=== PATIENT | male | born 1940 | race Caucasian/White ===

== ENCOUNTER 2018-02-11 19:12 | Inpatient (IN) ==
[2018-02-11 19:55] LABS: Basophils % 0.9 % (0.1-2.0); Eosinophils % 0.5 % (0.1-12.0); Hematocrit 45.1 % (42.0-52.0); Hemoglobin 13.2 g/dL (14.1-18.0); Lymphocytes # 1.7 K/mm3 (0.7-4.5); Lymphocytes % 38.8 K/mm3 (10-50); Mean Corpuscular HGB Conc 29.2 g/dL (31.8-35.4); Mean Corpuscular Hemoglobin 24.4 pg (27.0-31.2); Mean Corpuscular Volume 83.6 fl (80-94); Mean Platelet Volume 10.1 fl (7.4-10.4); Monocytes # 0.4 K/mm3 (0.1-1.0); Neutrophils # 2.2 K/mm3 (1.8-7.8); Neutrophils % 51.7 % (37.0-80.0); Platelet Count 168 K/mm3 (142-424); Red Blood Count 5.39 M/mm3 (4.60-6.20); Red Cell Distribution Width 17.3 % (11.5-17.5); White Blood Count 4.3 K/mm3 (4.8-10.8)
[2018-02-11 20:04] LABS: Albumin Level 3.2 gm/dL (3.4-5.0); Albumin/Globulin Ratio 0.9 (1.1-1.8); Anion Gap 17.1 mEq/L (5-15); Bilirubin,Total 0.7 mg/dL (0.2-1.0); Calcium 8.6 mg/dL (8.5-10.1); Globulin 3.7 gm/dl (1.3-3.2); Potassium 4.1 mmoL/L (3.5-5.1); Total Protein,Serum 6.9 gm/dL (6.4-8.2)
--- NOTE | 2018-02-11 20:25 | Emergency Department Note ---
ED Disposition Clinical Impression: Palpitations, NSTEMI (non-ST elevated myocardial infarction), COPD exacerbation LLL pneumonia Qualifiers: Pneumonia type: due to unspecified organism Qualified Code(s): J18.1 - Lobar pneumonia, unspecified organism Disposition: Admitted As Inpatient Condition on Discharge: Serious Time of Disposition: 22:25 - Critical Care Critical Care Time: Yes Attestation: On 02/11/18, the high probability of a clinically significant, sudden or life threatening deterioration of the following system(s) required my full and direct attention, intervention and personal management. The time I documented below is in addition to time spent performing reported procedures but includes the following listed in this critical care notation. Total Critical Care Time: 65 Vital system(s) involved:: Circulatory Failure My critical care processes included: Assessment & monitoring of V/S, Initial and Re-exams, Data Review/Interpretation, Coordinating Care, Medication Orders and management, Documentation Medical Decision Making - Medical Records Medical records reviewed: Yes: I reviewed the patient's medical records. - Andrew Inquiry Pt receiving controlled substance: No Vital Signs: 02/11/18 19:13 02/11/18 21:44 02/11/18 21:45 Temperature 98.7 F Temperature Source Oral Pulse Rate 87 Pulse Rate [Right Radial] 100 H Respiratory Rate 22 Blood Pressure [Right Arm] 148/95 Blood Pressure Mean [Right Arm] 112 02 Sat by Pulse Oximetry 97 97 Oxygen Delivery Method Nasal Cannula Nasal Cannula Oxygen Flow Rate (LPM) 3 2 - Lab Data Lab results reviewed: Yes: I reviewed the patient's lab results. Lab Results 02/11/18 00:00: Lactic Acid Fup @ 4Hr 1.9 02/11/18 19:25: WBC 4.3 L, RBC 5.39, Hgb 13.2 L, Hct 45.1, MCV 83.6, MCH 24.4 L , MCHC 29.2 L, RDW 17.3, Plt Count 168, MPV 10.1, Neut % (Auto) 51.7, Lymph % ( Auto) 38.8, [place] % (Auto) 8.0, Eos % (Auto) 0.5, Baso % (Auto) 0.9, Neut # (Auto ) 2.2, Lymph # (Auto) 1.7, [place] # (Auto) 0.4, Eos # (Auto) 0.0, Baso # (Auto) 0.0 02/11/18 19:25: Total Creatine Kinase 199, CK-MB (CK-2) 7.0 H, CK-MB (CK-2) Rel Index 3.5, Troponin I 1.97 H 02/11/18 19:25: Sodium 143, Potassium 4.1, Chloride 112 H, Carbon Dioxide 18 L, Anion Gap 17.1 H, BUN 31 H, Creatinine 1.50 H, Estimated Creat Clear 43, Estimated GFR 46 L, Est GFR ( Amer) 55 L, Glucose 132 H, Calcium 8.6, Magnesium 2.1, Total Bilirubin 0.7, AST 161 H, ALT 178 H, Alkaline Phosphatase 212 H, Total Protein 6.9, Albumin 3.2 L, Globulin 3.7 H, Albumin/Globulin Ratio 0.9 L 02/11/18 19:25: Lactic Acid 2.6 H Result diagrams: 02/11/18 19:25 02/11/18 19:25 Orders (Tests/Meds): ED MEDICATIONS Generic Name Dose Route Start Last Admin Trade Name Freq PRN Reason Stop Dose Admin Acetaminophen 325 mg 02/11/18 22:39 Acetaminophen 325mg Tab PO 03/13/18 22:38 Q8HP PRN Muscle Pain Albuterol/Ipratropium 3 ml 02/12/18 01:00 02/12/18 03:46 Duoneb 3ml [facility] 03/13/18 20:59 3 ml Q4H GEN Administration Albuterol/Ipratropium ml 02/11/18 22:39 Duoneb 3ml [facility] 03/13/18 22:38 Q6HP PRN Shortness Of Breath Aspirin 325 mg 02/12/18 20:47 Aspirin 325mg Tablet PO 03/14/18 20:46 DAILY [facility] Enoxaparin Sodium 70 mg 02/12/18 09:00 Lovenox 80mg/0.8ml Syringe SQ 03/13/18 20:59 BID GEN Finasteride 5 mg 02/12/18 09:00 Proscar 5mg Tablet PO 03/14/18 08:59 DAILY GEN Gabapentin 400 mg 02/12/18 09:00 Neurontin 400mg Capsule PO 03/14/18 08:59 TID GEN Levofloxacin/Dextrose 250 mg in 50 mls @ 100 mls/hr 02/12/18 21:00 Levaquin 250mg/50ml Premix IV 02/25/18 20:59 Q24H [facility] Protocol Piperacillin Sod/Tazobactam 50 mls @ 100 mls/hr 02/12/18 06:00 Sod 2.25 gm/ Sodium Chloride IV 02/25/18 05:59 Q6H [facility] Protocol Levetiracetam 500 mg 02/12/18 09:00 Keppra 500mg Tablet PO 03/14/18 08:59 DAILY [facility] Morphine Sulfate 2 mg 02/12/18 04:12 Morphine 2mg/2ml Syringe IV 03/14/18 04:11 Q4HP PRN MODERATE TO SEVERE PAIN Nitroglycerin 0.5 gm 02/12/18 05:00 Nitroglycerin 1 Inch Oint Udp TD 03/13/18 20:59 Q8 [facility] Non-Formulary Medication 3 mg 02/12/18 09:00 Melatonin PO 03/14/18 08:59 DAILY [facility] Non-Formulary Medication 2 tab 02/11/18 22:39 Senna Laxative Tablet PO BIDP PRN Constipation Non-Formulary Medication 1 applic 02/12/18 09:00 Hydrocortisone [Proctozone-Hc] MISCELLANE 03/14/18 08:59 BID [facility] Pantoprazole Sodium 40 mg 02/12/18 09:00 Protonix 40mg Tablet PO 03/14/18 08:59 DAILY [facility] Polyethylene Glycol 17 gm 02/12/18 09:00 Miralax 17gm Packet PO 03/14/18 08:59 DAILY [facility] Sodium Chloride 10 ml 02/11/18 22:39 Saline Flush 10ml Syringe IV 03/13/18 22:38 NEEDED PRN Maintain IV Site Tamsulosin HCl 0.4 mg 02/12/18 09:00 Flomax 0.4mg Capsule PO 03/14/18 08:59 DAILY [facility] Ticagrelor 90 mg 02/12/18 09:00 Brilinta 90mg Tablet PO 03/14/18 08:59 BID [facility] Discontinued Medications Generic Name Dose Route Start Last Admin Trade Name Freq PRN Reason Stop Dose Admin Albuterol/Ipratropium 3 ml 02/11/18 21:00 02/11/18 21:43 Duoneb 3ml Neb IH 03/13/18 20:59 3 ml Q4H GEN Administration Albuterol/Ipratropium 3 ml 02/11/18 21:40 02/12/18 00:37 Duoneb 3ml Neb IH 02/11/18 21:41 Not Given ONCE ONE Aspirin 325 mg 02/12/18 20:47 Aspirin 325mg Tablet PO 03/14/18 20:46 DAILY GEN Enoxaparin Sodium 70 mg 02/11/18 21:00 02/11/18 22:10 Lovenox 80mg/0.8ml Syringe SQ 03/13/18 20:59 70 mg BID GEN Administration Levofloxacin/Dextrose 250 mg in 50 mls @ 100 mls/hr 02/11/18 21:00 02/11/18 23:21 Levaquin 250mg/50ml Premix IV 02/25/18 20:59 100 mls/hr Q24H GEN Administration Protocol Piperacillin Sod/Tazobactam 50 mls @ 100 mls/hr 02/11/18 21:00 02/12/18 00:34 Sod 2.25 gm/ Sodium Chloride IV 02/25/18 20:59 100 mls/hr Q6H GEN Administration Protocol Sodium Chloride 1,000 mls @ 75 mls/hr 02/11/18 22:39 02/11/18 23:21 Sod Chlor 0.9% 1000ml Bag IV 03/13/18 22:38 75 mls/hr .[id number] GEN Administration Nitroglycerin 0.5 gm 02/11/18 21:00 02/11/18 22:15 Nitroglycerin 1 Inch Oint Udp TD 03/13/18 20:59 0.5 gm Q8 GEN Administration Ticagrelor 180 mg 02/11/18 20:56 02/12/18 00:34 Brilinta 90mg Tablet PO 02/11/18 20:57 180 mg ONCE ONE Administration ORDERS Category Date Time Status Blood Culture Stat Micro 02/11/18 19:25 Received - Radiology Data #1 Image(s): Chest Image Reviewed: Yes I reviewed the patient's radiology results, Yes I reviewed the patient's radiology image, Yes I have reviewed radiologist's interpretation LLL pneumonai - ECG Data Tracing #1 I reviewed this ECG and interpreted as documented below: paced rhythm with multiple PVCs, HR 88 ECG normal with no acute: arrhythmias, ischemia, conduction abnormalities, chamber hypertrophy Normal Sinus Rhythm: No - Physician Consults Physician Consulted: Dr Palomino Time: 20:53 Reason -: Admission, Pt condition, Cardiology Eval/Care Comment/Response: Agreeable with admission in consultation, recommended aspirin , Brilinta, Lovenox subcu, nitroglycerin, beta-blockers Additional Consult: Dr Ruano covering for Dr Aranda Time: 20:50 Reason -: Admission, Pt condition Comment/Response: agreeable with admission, management, cardiology consult. - Reevaluation(s) Time: 21:00 Reevaluation #1: Patient is denying any chest pain, at this time, states he is still short of breath. Arrhythmia/Palpitations HPI - General Chief Complaint: Arrhythmia/Palpitations Stated Complaint: bradycardia Time Seen by Provider: 02/11/18 20:00 Mode of Arrival: EMS Source of Information: Patient Limitations: Physical Limitations - History of Present Illness HPI narrative: Patient is a 77-year-old care home male patient with history of hydrocephalus sent to the emergency room because of chest pain and shortness of breath, voiced to the nursing staff, with unknown onset. Patient is a very poor historian, and details of his symptoms are very limited. Patient underwent CABG more than 10 years ago, per niece. Family also advised the patient had myocardial infarction in the past and a heart catheterization followed by couple of stents. The care home staff report was much shorter, staff reporting just a heart rate in the 30s, not confirmed upon arrival to the emergency room. MD complaint: palpitations Onset (ago): unknown Duration: intermittent Severity: moderate Context: occurred during rest Associated symptoms: chest pain, shortness of breath - Related Data Home Medications Medication Instructions Recorded Confirmed Acetaminophen [Tylenol] 325 mg PO Q8HP PRN 02/11/18 02/11/18 Amoxicillin/Potassium Clav 1 tab PO BID 02/11/18 02/11/18 [Amox-Clav 875-125 mg Tablet] Aspirin [Aspir 81] 81 mg PO DAILY 02/11/18 02/11/18 Finasteride [Proscar 5mg Tablet] 5 mg PO DAILY 02/11/18 02/11/18 Gabapentin [Gabapentin 400mg Cap] 400 mg PO TID 02/11/18 02/11/18 Hydrocortisone [Proctozone-Hc] 1 applic MISCELLANE BID 02/11/18 02/11/18 Ipratropium/Albuterol Sulfate 1 inh INHALATION Q6HP PRN 02/11/18 02/11/18 [Albut-Ipratropium 2.5mg-0.5mg/3 ml] Melatonin 3 mg PO DAILY 02/11/18 02/11/18 Pantoprazole Sodium [Protonix 40mg 40 mg PO DAILY 02/11/18 02/11/18 tablet] Polyethylene Glycol 3350 [Miralax 17 gm PO DAILY 02/11/18 02/11/18 17gm Packet] Senna Laxative Tablet 2 tab PO BIDP PRN 02/11/18 02/11/18 Tamsulosin HCl [Flomax 0.4mg 0.4 mg PO DAILY 02/11/18 02/11/18 capsule] levETIRAcetam [Keppra 500mg tablet] 500 mg PO DAILY 02/11/18 02/11/18 Allergies Allergy/AdvReac Type Severity Reaction Status Date / Time No Known Allergies Allergy Verified 02/12/18 01:49 [facility] History I have reviewed the patient's past medical history: Yes Medical History: Denies:: Cancer, Diabetes Mellitus Type 1, Diabetes Mellitus Type 2 - Social History Smoking Status: Never smoker Alcohol Intake: never - Psychiatric History Expresses thoughts of harming self/others: None Suicide Plan Description: No Plan ROS Obtained: Yes All systems reviewed & no additional complaints, Yes Systems reviewed as appropriate & no additional complaints - Cardiovascular Cardiovascular: Reports system reviewed and no additional complaints, except as docu, Reports as per HPI, Reports chest pain - Respiratory Respiratory: Yes system reviewed and no additional complaints, except as docu, Yes as per HPI, Yes dyspnea Physical Exam - General General appearance: alert, in distress (mild) - Head Head exam: atraumatic, normocephalic, normal inspection - Eye Eye exam: Present: normal appearance, PERRL, EOMI, other (cataracts) - Neck Neck exam: Present: normal inspection, full ROM, trachea midline. Absent: meningismus, lymphadenopathy - Chest Chest inspection: Present: normal inspection, symmetric chest wall rise. Absent : tenderness - Respiratory Respiratory exam: Present: respiratory distress, wheezes - Cardiovascular Cardiovascular exam: Present: regular rate, normal rhythm. Absent: JVD - Abdominal Exam Abdominal exam: Present: soft, normal bowel sounds. Absent: distention, tenderness, guarding - Extremities Exam Extremities exam: Present: normal inspection, full ROM, normal capillary refill. Absent: calf tenderness - Back Exam Back exam: Present: normal inspection. Absent: tenderness - Neurological Exam Neurological exam: Present: alert, CN II-XII intact, motor sensory deficit, other (very hard of hearing, lethargic) - Psychiatric Psychiatric exam: Present: depressed, flat affect - Skin Skin exam: Present: warm, dry, intact, normal color - Lymphatic Lymphatic Findings: no adenopathy
[2018-02-12 07:19] LABS: Chol/HDL Ratio 4.3 (1-3.5)
--- NOTE | 2018-02-12 07:46 | Pharmacy Consult Notes ---
[facility] Pharmacy VTE Monitoring - Patient Demographics Admission date: 02/11/18 Report Date: 02/12/18 Time: 07:46 Allergies/Adverse Reactions: Patient Allergies No Known Allergies Allergy (Verified 02/12/18 01:49) Height: 1.75 m Weight: 85.899 kg Patient Problems: Current Active Problems Palpitations (Acute) NSTEMI (non-ST elevated myocardial infarction) (Acute) LLL pneumonia (Acute) COPD exacerbation (Acute) - VTE Risk Labs: VTE Related Lab Results Hgb 13.2 g/dL (14.1-18.0) L 02/11/18 19:25 Hct 45.1 % (42.0-52.0) 02/11/18 19:25 Plt Count 168 K/mm3 (142-424) 02/11/18 19:25 BUN 31 mg/dL (7-18) H 02/11/18 19:25 Creatinine 1.50 mg/dL (0.70-1.30) H 02/11/18 19:25 Estimated Creat Clear 43 mL/min (0-300) 02/11/18 19:25 Was VTE Risk Assessment Performed: Yes VTE Score: 5 VTE Risk Level: Low Risk Clinical Trial Participant: No - Prophylaxis VTE Prophylaxis Ordered?: Yes Types of VTE Prophylaxis: TEDS Knee High, Pharmacological Pharmacologic Type: Enoxaparin
--- NOTE | 2018-02-12 08:09 | Consult Report ---
History of Present Illness Consult date: 02/12/18 Requesting physician: Samuel Aranda Chief complaint: Bradycardia Additional Medical History:: 1. Coronary artery disease A. History of three-vessel coronary bypass grafting, BRISCOE to LAD, SVG to first diagonal and SVG to PDA in 1993. B. Ischemic CM with EF in the 25-40% range over several years by various imaging modalities 2. History of sick sinus syndrome with pacemaker placement in 1996 A. [employer] pacemaker placement 2002 B. Upgrade to [employer] AICD in 2004 due to ischemic cardiomyopathy with battery replacement last in 10/31/2014 3. History of right upper extremity trauma at -[facility]. A. History of tendon release in the 1949s. 4. Hypertension 5. Hyperlipidemia History of present illness: 77-year-old white male with known coronary artery disease and ischemic cardiomyopathy with AICD in situ was sent from long-term due to reported bradycardia. Workup in the ER revealed elevated troponins and patient was admitted for non-STEMI. He was started on antiplatelet therapy last evening with plans for cardiac catheterization today. Due to report of bradycardia AICD will be interrogated today. Patient denies any chest pain at this time but does get anxious quickly. His niece is present and answers most of the history questions. EKG shows intermittent pacing with PVCs in a bigeminal pattern. Inter-Ventricular conduction delay noted. Pt is easily excited and becomes SOA with audible wheezing but settles down quickly and breathing returns to normal. [facility] History Medical History: Reports:: Coronary Artery Disease, Hyperlipidemia, Hypertension , Internal Pacemaker, Myocardial Infarction Denies:: Cancer, Diabetes Mellitus Type 1, Diabetes Mellitus Type 2, MRSA Other Medical History: Reports: Arthritis, Thyroid Disease Other Surgeries: Yes: CABG, Cardiac Surgery, Pacemaker Amputation: No Fractures: Yes (shoulder) - *Social History Smoking Status: Never smoker Alcohol Intake: never Occupational Status: retired Housing: long-term Household Members: none - Psychiatric History Expresses thoughts of harming self/others: None Suicide Plan Description: No Plan Meds Home Medications Medication Instructions Recorded Confirmed Type Acetaminophen [Tylenol] 325 mg PO Q8HP PRN 02/11/18 02/11/18 History Aspirin [Aspir 81] 81 mg PO DAILY 02/11/18 02/11/18 History Finasteride [Proscar 5mg Tablet] 5 mg PO DAILY 02/11/18 02/11/18 History Gabapentin [Gabapentin 400mg Cap] 400 mg PO TID 02/11/18 02/11/18 History Hydrocortisone [Proctozone-Hc] 1 applic MISCELLANE BID 02/11/18 02/11/18 History Ipratropium/Albuterol Sulfate 1 inh INHALATION Q6HP PRN 02/11/18 02/11/18 History [Albut-Ipratropium 2.5mg-0.5mg/3 ml] Melatonin 3 mg PO DAILY 02/11/18 02/11/18 History Pantoprazole Sodium [Protonix 40mg 40 mg PO DAILY 02/11/18 02/11/18 History tablet] Polyethylene Glycol 3350 [Miralax 17 gm PO DAILY 02/11/18 02/11/18 History 17gm Packet] Senna Laxative Tablet 2 tab PO BIDP PRN 02/11/18 02/11/18 History Tamsulosin HCl [Flomax 0.4mg 0.4 mg PO DAILY 02/11/18 02/11/18 History capsule] levETIRAcetam [Keppra 500mg tablet] 500 mg PO DAILY 02/11/18 02/11/18 History Allergies Allergy/AdvReac Type Severity Reaction Status Date / Time No Known Allergies Allergy Verified 02/12/18 01:49 Review of Systems - *Cardiovascular Reports chest pain - *Respiratory Reports shortness of breath with activity - *Gastrointestinal Denies abdominal pain Exam Vital signs and Labs for Last 24 Hours: Temp Pulse Resp BP Pulse Ox 98.0 F 101 H 24 145/109 95 02/12/18 07:44 02/12/18 07:44 02/12/18 07:44 02/12/18 07:44 02/12/18 07:44 Laboratory Results - last 24 hr 02/11/18 22:55: Troponin I 2.13 H 02/12/18 06:09: Triglycerides 67, Cholesterol 134 L, LDL Cholesterol 90, VLDL Cholesterol 13, HDL Cholesterol 31, Cholesterol/HDL Ratio 4.3 H I & O for Last 24 hours: Intake & Output 02/09/18 02/10/18 02/11/18 02/12/18 11:59 11:59 11:59 11:59 Weight 189 lb 6 oz - *Routine Neck Exam Absent: JVD, carotid bruit - *Routine Respiratory Exam Present: wheezes - *Routine Cardiovascular Exam Present: irregular rhythm - *Routine Extremities Exam Absent: edema - *Routine Neurological Exam Present: alert Assessment and Plan (1) COPD exacerbation Current visit: Yes Status: Acute Category: Medical Code(s): J44.1 - Chronic obstructive pulmonary disease with (acute) exacerbation (2) NSTEMI (non-ST elevated myocardial infarction) Current visit: Yes Status: Acute Category: Medical Code(s): I21.4 - Non- ST elevation (NSTEMI) myocardial infarction (3) Palpitations Current visit: Yes Status: Acute Category: Medical Code(s): R00.2 - Palpitations (4) Bradycardia Current visit: Yes Status: Acute Category: Medical Code(s): R00.1 - Bradycardia, unspecified (5) AICD (automatic cardioverter/defibrillator) present Current visit: Yes Status: Acute Category: Surgical Code(s): Z95.810 - Presence of automatic (implantable) cardiac defibrillator - Assessment and plan all Dx Assessment and Plan for all problems:: 1. With known CAD/CABG and elevated troponins, will plan to proceed with C with grafts today. 2. Due to reported bradycardia, will interrogate AICD. 3. Check echo if needed to re-assess LVEF but will await results of cardiac cath before ordering. 4. Further recommendations to follow
--- NOTE | 2018-02-12 08:38 | History & Physical Report ---
*Admission Date: 02/11/18 *Chief complaint: Chest pain *History of present illness: 77-year-old white male, long-term resident of local alf who is afflicted with baseline cognitive impairment and has had seizure disorder in the past who over the past couple of days has complained of some coughing, has had some increased falls and yesterday began complaining of chest pain. Brought to the emergency department he was found to have elevated troponins, and slightly dehydrated. Admitted to [facility] for further evaluation, rule out [place] and cardiology consultation. [facility] History I have reviewed the patient's past medical history: Yes Medical History: Reports:: Coronary Artery Disease, Hyperlipidemia, Hypertension , Internal Pacemaker, Myocardial Infarction Denies:: Cancer, Diabetes Mellitus Type 1, Diabetes Mellitus Type 2, MRSA Other Medical History: Reports: Arthritis, Thyroid Disease, Other (Congenital cognitive impairment hydrocephalus -history of seizure disorder) Comment: Patient has deferred replacement years ago, questionable performance Other Surgeries: Yes: CABG, Cardiac Surgery, Pacemaker Amputation: No Fractures: Yes (shoulder) - *Social History Smoking Status: Never smoker Alcohol Intake: never Occupational Status: retired Housing: alf Household Members: none - Psychiatric History Expresses thoughts of harming self/others: None Suicide Plan Description: No Plan Review of Systems - Review of Systems Review of systems:: unable to obtain, other, pertinent systems reviewed and negative unless documented below - *Cardiovascular Reports chest pain, Reports chest pain at rest, Reports shortness of breath, Denies excessive sweating, Denies irregular heart rhythm - *Respiratory Reports change in phlegm color, Reports chest congestion, Reports cough - *Gastrointestinal Denies abdominal pain Meds Home Medications Medication Instructions Recorded Confirmed Type Acetaminophen [Tylenol] 325 mg PO Q8HP PRN 02/11/18 02/11/18 History Amoxicillin/Potassium Clav 1 tab PO BID 02/11/18 02/11/18 History [Amox-Clav 875-125 mg Tablet] Aspirin [Aspir 81] 81 mg PO DAILY 02/11/18 02/11/18 History Finasteride [Proscar 5mg Tablet] 5 mg PO DAILY 02/11/18 02/11/18 History Gabapentin [Gabapentin 400mg Cap] 400 mg PO TID 02/11/18 02/11/18 History Hydrocortisone [Proctozone-Hc] 1 applic MISCELLANE BID 02/11/18 02/11/18 History Ipratropium/Albuterol Sulfate 1 inh INHALATION Q6HP PRN 02/11/18 02/11/18 History [Albut-Ipratropium 2.5mg-0.5mg/3 ml] Melatonin 3 mg PO DAILY 02/11/18 02/11/18 History Pantoprazole Sodium [Protonix 40mg 40 mg PO DAILY 02/11/18 02/11/18 History tablet] Polyethylene Glycol 3350 [Miralax 17 gm PO DAILY 02/11/18 02/11/18 History 17gm Packet] Senna Laxative Tablet 2 tab PO BIDP PRN 02/11/18 02/11/18 History Tamsulosin HCl [Flomax 0.4mg 0.4 mg PO DAILY 02/11/18 02/11/18 History capsule] levETIRAcetam [Keppra 500mg tablet] 500 mg PO DAILY 02/11/18 02/11/18 History Allergies Allergy/AdvReac Type Severity Reaction Status Date / Time No Known Allergies Allergy Verified 02/12/18 01:49 Exam Vital signs and Labs for Last 24 Hours: Temp Pulse Resp BP Pulse Ox 98.0 F 100 H 24 145/109 95 02/12/18 07:44 02/12/18 08:00 02/12/18 07:44 02/12/18 07:44 02/12/18 08:00 Laboratory Results - last 24 hr 02/11/18 22:55: Troponin I 2.13 H 02/12/18 06:09: Triglycerides 67, Cholesterol 134 L, LDL Cholesterol 90, VLDL Cholesterol 13, HDL Cholesterol 31, Cholesterol/HDL Ratio 4.3 H I & O for Last 24 hours: Intake & Output 02/09/18 02/10/18 02/11/18 02/12/18 11:59 11:59 11:59 11:59 Weight 189 lb 6 oz Narrative: Patient is pleasant, talkative, right facial droop, previously noted. Has a mild cough. Lungs have good air movement, slight rhonchi in the left anterior [place] that is not noted with every breath. Heart rate regular abdomen soft, no edema H&P: Result - Labs Labs: Cardiac Enzymes 02/11/18 Range/Units 22:55 Troponin I 2.13 H (0.00-0.06) ng/ml Assessment and Plan (1) COPD exacerbation Current visit: Yes Status: Acute Category: Medical Code(s): J44.1 - Chronic obstructive pulmonary disease with (acute) exacerbation (2) NSTEMI (non-ST elevated myocardial infarction) Current visit: Yes Status: Acute Category: Medical Code(s): I21.4 - Non- ST elevation (NSTEMI) myocardial infarction (3) Palpitations Current visit: Yes Status: Acute Category: Medical Code(s): R00.2 - Palpitations (4) Bradycardia Current visit: Yes Status: Acute Category: Medical Code(s): R00.1 - Bradycardia, unspecified (5) AICD (automatic cardioverter/defibrillator) present Current visit: Yes Status: Acute Category: Surgical Code(s): Z95.810 - Presence of automatic (implantable) cardiac defibrillator - Assessment and plan all Dx Assessment and Plan for all problems:: Appreciate cardiology evaluation. Breathing treatments for cough. IV antibiotics for bronchitis. No pneumonia on chest x-ray.
--- NOTE | 2018-02-13 08:43 | Progress Note ---
Internal Medicine - PN: Subj *Date: 02/13/18 *Time: 08:42 Interval history: Patient did fairly well overnight, continues to cough, have some sputum production. Exam Vital signs and Labs for Last 24 Hours: Temp Pulse Resp BP Pulse Ox 98.4 F 58 L 20 99/58 96 02/13/18 04:00 02/13/18 08:12 02/13/18 06:00 02/13/18 06:00 02/13/18 08:00 Laboratory Results - last 24 hr 02/12/18 16:12: Activated Clotting Time 393 H* I & O for Last 24 hours: Intake & Output 02/10/18 02/11/18 02/12/18 02/13/18 11:59 11:59 11:59 11:59 Weight 189 lb 6 oz 192 lb 4 oz Narrative: Patient is a little bit more active, alert. Lungs have rhonchi bilaterally, heart rate regular. Good distal perfusion. Assessment and Plan (1) COPD exacerbation Current visit: Yes Status: Acute Category: Medical Code(s): J44.1 - Chronic obstructive pulmonary disease with (acute) exacerbation (2) NSTEMI (non-ST elevated myocardial infarction) Current visit: Yes Status: Acute Category: Medical Code(s): I21.4 - Non- ST elevation (NSTEMI) myocardial infarction (3) Palpitations Current visit: Yes Status: Acute Category: Medical Code(s): R00.2 - Palpitations (4) Bradycardia Current visit: Yes Status: Acute Category: Medical Code(s): R00.1 - Bradycardia, unspecified (5) AICD (automatic cardioverter/defibrillator) present Current visit: Yes Status: Acute Category: Surgical Code(s): Z95.810 - Presence of automatic (implantable) cardiac defibrillator - Assessment and plan all Dx Assessment and Plan for all problems:: Cardiac issues improved. Continues to have vestiges of COPD exacerbation. Continue therapy for this and probable transfer to detention tomorrow.
--- NOTE | 2018-02-14 08:41 | Discharge Summary ---
General - General Admission date: 02/11/18 Discharge date: 02/14/18 HPI HPI: 77-year-old white male, long-term resident of local retirement who is afflicted with baseline cognitive impairment and has had seizure disorder in the past who over the past couple of days has complained of some coughing, has had some increased falls and yesterday began complaining of chest pain. Brought to the emergency department he was found to have elevated troponins, and slightly dehydrated. Admitted to hospital for further evaluation, rule out OR and cardiology consultation. Hospital Course Hospital Course: Patient was placed on antibiotics to cover retirement acquired pneumonia, IV fluids were given and oxygen support. The patient improved very nicely. Pacemaker was found to be functioning on telemetry monitoring, but patient was also found to have elevated troponin levels consistent with a non-STEMI and taken to [facility]. The body of the report and recommendations are noted below. ANGIOGRAPHIC RESULTS: 1. The left main artery has distal eccentric 30% stenosis 2. The left anterior descending artery gives rise to a very high first diagonal artery which has a 99% stenosis. This is the stent the vessel. Distal to the first high diagonal artery the LAD is occluded 3. The ramus intermedius is a moderate sized vessel and has an ostial proximal 90% stenosis 4. The circumflex artery is nondominant and gives rise to 2 obtuse marginal arteries which collateralizes the distal dominant right coronary artery 5. The right coronary artery is dominant and ostially occluded 6. The SANTIAGO ventriculogram reveals severe left ventricular dilatation with anterior apical hypokinesis estimated ejection fraction 20% 7. The left ventricular end-diastolic pressure 20 mmHg 8. The left internal mammary artery landy a widely patent graft and makes its anastomosis on to the proximal portion of the LAD. The LAD is free of significant disease and is occluded and a proximal manner which does not backfill the the first diagonal artery 9. The saphenous vein graft to the right coronary artery is proximally occluded 10. The saphenous vein graft to the circumflex artery is ostially occluded IMPRESSION: 1. Coronary artery disease as described above with unbypassed large first diagonal artery off the LAD which is critically disease along with a critically disease to moderate sized ramus intermedius 2. Successful stenting of the first diagonal artery off the LAD critical disease reduced to 0% with 1 drug-eluting stent 3. Successful stenting of the moderate ramus intermedius critical disease reduced to 0% with 1 drug-eluting stent 4. Multiple ventricular fibrillation episodes in the last several months 5. Severely reduced ejection fraction with extensive regional wall motion abnormality Patient did well post catheterization. Oxygenation improved over his baseline but he continued to require oxygen throughout his hospital course. Sputum culture was obtained, at the time of this dictation shows gram-positive cocci in the sputum but formal identification and sensitivities pending. Patient is reached his baseline. He will be transferred back to the retirement. He will be on oxygen 2 L nasal cannula, this may be weaned as tolerated. He will finish up a course of Augmentin. Cardiac medications have been adjusted according to recommendations and are as noted in his medication reconciliation form. Please note the patient will need CBC, CMP at next retirement lab draw. Objective Vital signs: Temp Pulse Resp BP Pulse Ox 98 F 72 20 136/57 92 L 02/14/18 04:00 02/14/18 06:53 02/14/18 06:00 02/14/18 06:00 02/14/18 06:53 Narrative: Although exam is limited somewhat by patient's cognitive deficits he is much more communicative, feels better, no complaints of pain. Heart rate regular, occasional ectopic beats. These corresponded PACs on the equipment monitor phototypesetting. No sustained runs of dysrhythmias. Lungs are much clear except for minimal right-sided rhonchi. Abdomen soft, nontender, no edema noted in his extremities and good pulses. DS: Diagnosis - Discharge Diagnosis (1) COPD exacerbation Status: Acute (2) NSTEMI (non-ST elevated myocardial infarction) Status: Acute (3) Palpitations Status: Acute (4) Bradycardia Status: Acute (5) AICD (automatic cardioverter/defibrillator) present Status: Acute (6) Ischemic cardiomyopathy Status: Acute Discharge Plan - Patient Discharge Instructions ACTIVITY: Continue current activity DIET: continue same diet - Follow up Plan Follow up with: Samuel Aranda MD [Staff Physician] - Disposition: [facility] Home Medications: Home Medications Medication Instructions Recorded Confirmed Type Acetaminophen [Tylenol] 325 mg PO Q8HP PRN 02/11/18 02/11/18 History Aspirin [Aspir 81] 81 mg PO DAILY 02/11/18 02/11/18 History Finasteride [Proscar 5mg Tablet] 5 mg PO DAILY 02/11/18 02/11/18 History Gabapentin [Gabapentin 400mg Cap] 400 mg PO TID 02/11/18 02/11/18 History Hydrocortisone [Proctozone-Hc] 1 applic MISCELLANE BID 02/11/18 02/11/18 History Ipratropium/Albuterol Sulfate 1 inh INHALATION Q6HP PRN 02/11/18 02/11/18 History [Albut-Ipratropium 2.5mg-0.5mg/3 ml] Melatonin 3 mg PO DAILY 02/11/18 02/11/18 History Pantoprazole Sodium [Protonix 40mg 40 mg PO DAILY 02/11/18 02/11/18 History tablet] Polyethylene Glycol 3350 [Miralax 17 gm PO DAILY 02/11/18 02/11/18 History 17gm Packet] Senna Laxative Tablet 2 tab PO BIDP PRN 02/11/18 02/11/18 History Tamsulosin HCl [Flomax 0.4mg 0.4 mg PO DAILY 02/11/18 02/11/18 History capsule] levETIRAcetam [Keppra 500mg tablet] 500 mg PO DAILY 02/11/18 02/11/18 History Prescriptions/Medication Reconciliation: New Amoxicillin/Potassium Clav [Augmentin 875-125 Tablet] 1 tab PO Q12H #14 tab Bisoprolol Fumarate [Zebeta 5mg tablet] 0 mg PO DAILY #30 tablet Lisinopril [Lisinopril 10mg Tab] 10 mg PO DAILY #30 tab Spironolactone [Spironolactone 50mg Tab] 50 mg PO BID 30 Days #60 tab Ticagrelor [Brilinta 90mg Tablet] 90 mg PO BID #60 tablet Continue Tamsulosin HCl [Flomax 0.4mg capsule] 0.4 mg PO DAILY Senna Laxative Tablet 2 tab PO BIDP PRN PRN Reason: Constipation Polyethylene Glycol 3350 [Miralax 17gm Packet] 17 gm PO DAILY Pantoprazole Sodium [Protonix 40mg tablet] 40 mg PO DAILY Melatonin 3 mg PO DAILY levETIRAcetam [Keppra 500mg tablet] 500 mg PO DAILY Ipratropium/Albuterol Sulfate [Albut-Ipratropium 2.5mg-0.5mg/3 ml] 1 inh INHALATION Q6HP PRN PRN Reason: Shortness Of Breath Gabapentin [Gabapentin 400mg Cap] 400 mg PO TID Finasteride [Proscar 5mg Tablet] 5 mg PO DAILY Acetaminophen [Tylenol] 325 mg PO Q8HP PRN PRN Reason: Muscle Pain Hydrocortisone [Proctozone-Hc] 1 applic MISCELLANE BID Aspirin [Aspir 81] 81 mg PO DAILY
== END 2018-02-14 11:25 ==
LOC: ER 19:12 → 2ND 21:21
PROVIDERS: ADMIT Family Medicine; ATTEND Internal Medicine Adolescent Medicine

== ENCOUNTER → 2018-12-21 18:09 | Outpatient (CLI) | payer MEDICARE, SELFPAY ==
[2018-12-21 18:14] LABS: Microscopic, Urine URINE MICROSCOPIC (MICROSCOPIC)
[2018-12-21 18:21] LABS: Basophils # 0.1 K/mm3 (0-0.2); Basophils % 1.4 % (0.1-2.0); Eosinophils # 0.6 K/mm3 (0.0-0.4); Eosinophils % 8.5 % (0.1-12.0); Hematocrit 45.5 % (42.0-52.0); Hemoglobin 14.6 g/dL (14.1-18.0); Lymphocytes # 2.1 K/mm3 (0.7-4.5); Lymphocytes % 28.8 % (10-50); Mean Corpuscular Hemoglobin 28.5 pg (27.0-31.2); Mean Corpuscular Volume 89.1 fl (80-94); Mean Platelet Volume 8.3 fl (7.4-10.4); Monocytes # 0.5 K/mm3 (0.1-1.0); Monocytes % 6.2 % (1.7-9.3); Neutrophils # 4.1 K/mm3 (1.8-7.8); Neutrophils % 55.1 % (37.0-80.0); Platelet Count 248 K/mm3 (142-424); Red Blood Count 5.11 M/mm3 (4.60-6.20); Red Cell Distribution Width 16.2 % (11.5-17.5); White Blood Count 7.4 K/mm3 (4.8-10.8)
[2018-12-21 19:16] LABS: Appearance,Urine CLEAR (Clear); Bilirubin,Urine Negative (Negative); Blood, Urine Negative (Negative); Color,Urine YELLOW (Yellow); Glucose,Urine (UA) Negative (Negative); Ketones,Urine Negative (Negative); Leukocyte Esterase,Urine Negative (Negative); Nitrate,Urine Negative (Negative); PH,Urine 5.5 (5.0-8.5); Protein,Urine Negative (Negative); Urobilinogen,Urine 0.2 EU/dl (0.2)
[2018-12-21 19:29] LABS: WBC,Urine Occasional #/hpf (0-3)
[2018-12-21 19:30] LABS: Bacteria,Urine Trace /lpf; Squamous Epithelial Cell,Urine Occasional #/hpf (0-5)
[2018-12-21 20:05] LABS: Alanine Aminotransferase 18 U/L (12-78); Albumin Level 3.4 gm/dL (3.4-5.0); Albumin/Globulin Ratio 0.9 (1.1-1.8); Alkaline Phosphatase 150 U/L (46-116); Anion Gap 19.8 mEq/L (5-15); Aspartate Amino Transferase 11 U/L (15-37); Bilirubin,Total 0.5 mg/dL (0.2-1.0); Blood Urea Nitrogen 22 mg/dL (7-18); Carbon Dioxide 17 mmol/L (21.0-32.0); Chloride 107 mmol/L (98-107); Creatinine,Serum 1.61 mg/dL (0.70-1.30); Estimated Glomerular Filt Rate 42 ml/min (>60); GFR (African American) 51 ML/MIN (>60); Globulin 3.7 gm/dl (1.3-3.2); Glucose 138 mg/dL (74-106); Potassium 4.8 mmoL/L (3.5-5.1); Sodium 139 mmol/L (136-145); Total Protein,Serum 7.1 gm/dL (6.4-8.2)
== END ==
PROVIDERS: Visit Provider Internal Medicine Adolescent Medicine
DX: R45.1 Restlessness and agitation (principal); R41.0 Disorientation, unspecified
CPT/HCPCS: 80053; 81001; 85025

== ENCOUNTER → 2018-12-28 10:15 | Outpatient (CLI) | payer MEDICARE, MEDICAID, SELFPAY ==
--- NOTE | 2018-12-28 10:20 | CT_ITS ---
CT head/brain wo con HISTORY: ITS.REASON: NORMAL PRESSURE HYDROCEPHALUS, evaluate shunt status ORDERING PHYSICIAN: Samuel Aranda MD PATIENT AGE: 78 years COMPARISON: 11/12/2018 TECHNIQUE: Axial images obtained without contrast. Brain and bone windows reviewed. All CT scans at the facility use one or more dose reduction, viz: automated exposure control, ma/kV adjustment per patient size (including targeted exams where dose is matched to indication, i.e. head), or iterative reconstruction technique. FINDINGS: There remains marked dilatation of lateral ventricles. The third ventricle is also enlarged. The fourth ventricle slightly prominent but not as enlarged as the third and lateral ventricles consistent with aqueduct stenosis. Ventricular enlargement is not significant changed. No midline shift or intracranial hemorrhage is evident. IMPRESSION: No change hydrocephalus. There is asymmetric enlargement of the lateral and third ventricles suggesting aqueduct stenosis as before. Normal pressure hydrocephalus is also a consideration
--- NOTE | 2018-12-28 10:43 | XR_ITS ---
XR chest 2V HISTORY: Chest series, evaluate shunt malfunction, aqueduct stenosis ORDERING PHYSICIAN: Samuel Aranda MD PATIENT AGE: 78 years COMPARISON: 11/12/2018 FINDINGS: AP and lateral views of the chest shows cardiomegaly. There has been a prior median sternotomy with 4 pacer wires present to the region of the right atrium into the region of the right ventricle. A shunt tube is not identified. Patchy density is present in the right lower lobe consistent with an area of infiltrate. IMPRESSION: 1. No shunt tube identified 2. Cardiomegaly with right lower lobe infiltrate
--- NOTE | 2018-12-28 10:43 | XR_ITS ---
XR abdomen min 2V HISTORY: Evaluate shunt integrity, shunt series ORDERING PHYSICIAN: Samuel Aranda MD PATIENT AGE: 78 years COMPARISON: None FINDINGS: No shunt tube identified. There is moderate retained colonic feces with lumbar scoliosis convex left with degenerative changes of the lumbar spine. IMPRESSION: No shunt tube identified
--- NOTE | 2018-12-28 10:43 | XR_ITS ---
EXAM: XR cervical spine 2V HISTORY: Shunt series evaluate for shunt malfunction ITS.REASON: HYDROAQUDUCTAL STENOSIS ORDERING PHYSICIAN: Samuel Aranda MD PATIENT AGE: 78 years COMPARISON: None FINDINGS: AP and lateral views are obtained of the cervical spine to evaluate for shunt malfunction. No shunt is identified. There is 3 mm anterolisthesis of C5 on C6 with mild degenerative disc disease C5-C6 and C6-C7. No fracture or dislocation. No lytic or blastic change. IMPRESSION: 1. No shunt identified 2. Degenerative disc disease cervical spine
== END ==
PROVIDERS: PCP Internal Medicine Adolescent Medicine; Visit Provider Internal Medicine Adolescent Medicine
DX: G91.2 (Idiopathic) normal pressure hydrocephalus (principal)
CPT/HCPCS: 70450; 71046; 72040; 74019

== ENCOUNTER → 2019-06-07 13:07 | Outpatient (CLI) | payer MEDICARE, MEDICAID, SELFPAY ==
--- NOTE | 2019-06-07 13:11 | CT_ITS ---
CT abdomen pelvis wo con CLINICAL INDICATION: Hematuria ITS.REASON: HEMATURIA ORDERING PHYSICIAN: Samuel Aranda MD PATIENT AGE: 79 years COMPARISON: 03/23/2017 TECHNIQUE: Axial images obtained with sagittal and coronal reformats. All CT scans at the facility use one or more dose reduction, viz: automated exposure control, ma/kV adjustment per patient size (including targeted exams where dose is matched to indication, i.e. head), or iterative reconstruction technique. FINDINGS: Lower thorax: There is diffuse bilateral gynecomastia. Artifact is present from cardiac pacemaker. There is mosaic attenuation of the lung base on the right. Mild atelectatic changes are present in the left lung base. Postcholecystectomy. There is mild distention of the stomach filled with food and or secretions. No focal liver lesion. Spleen, adrenal glands, and pancreas have an unremarkable appearance. No renal or ureteral calculi. No hydronephrosis. There is mild nonspecific stranding of the perinephric fat. No intestinal obstruction, free air, appendicitis, or diverticulitis. No pelvic mass or abnormal fluid collection. Atherosclerotic changes involve the aortoiliac vessels. There are degenerative changes in the lumbar spine with mild lumbar scoliosis convex left. There is fusion of the SI joints. IMPRESSION: 1. No acute abdominal or pelvic findings. 2. Mosaic attenuation of the right lung base which may be due to patchy infiltrate 3. Bilateral gynecomastia. 4. No renal or ureteral calculi.
== END ==
PROVIDERS: PCP Internal Medicine Adolescent Medicine; Visit Provider Internal Medicine Adolescent Medicine
DX: R31.9 Hematuria, unspecified (principal)
CPT/HCPCS: 74176

== ENCOUNTER → 2019-11-04 10:57 | Outpatient (CLI) | payer MEDICARE, MEDICAID, SELFPAY | PROVIDERS: PCP Internal Medicine Adolescent Medicine; Visit Provider Urology | DX: I47.2 Ventricular tachycardia (principal) | CPT/HCPCS: 93306 ==

== ENCOUNTER 2020-12-04 18:59 | Inpatient (IN) | payer MEDICARE, MEDICAID, SELFPAY ==
[2020-12-04] VITALS (10 sets, daily range): BP systolic 89–108; BP diastolic 50–66; PULSE 60–105; RESP 26–35; TEMP 36.4; O2SAT 85–93; BMI 28.0
--- NOTE | 2020-12-04 19:00 | ECG_ITS ---
APPROVED REPORT Exam: Resting ECG HR:100 bpm ECG Measurements Heart Rate 100 AXES ME 148 P 26 QRSd 96 QRS 55 QT 346 T 248 QTc 446 Conclusion Sinus rhythm with occasional premature ventricular complexes Low voltage QRS Inferior infarct changes - old Poor r wave progression Abnormal ECG Electronically signed by : Samuel Aranda, 12/05/2020 05:55:42
[2020-12-04 19:30] LABS: Oxygen 100 %
[2020-12-04 19:39] LABS: Basophils # 0.1 K/mm3 (0-0.2); Basophils % 0.4 % (0.1-2.0); Eosinophils # 0.3 K/mm3 (0.0-0.4); Eosinophils % 1.6 % (0.1-12.0); Hematocrit 41.9 % (42.0-52.0); Hemoglobin 12.6 g/dL (14.1-18.0); Lymphocytes # 4.1 K/mm3 (0.7-4.5); Mean Corpuscular Hemoglobin 27.4 pg (27.0-31.2); Mean Corpuscular Volume 91.3 fl (80-94); Mean Platelet Volume 8.8 fl (7.4-10.4); Monocytes # 0.7 K/mm3 (0.1-1.0); Monocytes % 4.5 % (1.7-9.3); Neutrophils # 11.2 K/mm3 (1.8-7.8); Neutrophils % 68.6 % (37.0-80.0); Platelet Count 470 K/mm3 (142-424); Red Blood Count 4.59 M/mm3 (4.60-6.20); Red Cell Distribution Width 14.8 % (11.5-17.5); White Blood Count 16.3 K/mm3 (4.8-10.8)
--- NOTE | 2020-12-04 19:41 | XR_ITS ---
PROCEDURE: XR CHEST PORTABLE CLINICAL HISTORY: SOA Code blue earlier COMPARISON: CR CXR1VP XR chest portable from 02/11/2018 CR CXR1VP XR chest portable from 11/12/2018 CR CXR2V XR chest 2V from 12/28/2018 FINDINGS: There has been a prior CABG. There is cardiomegaly. Cardiac pacemaker wires are present. Consolidation is present in the left lower lobe and right lower lung zone laterally. Overlying defibrillator device and monitor leads noted. IMPRESSION: Cardiomegaly with bilateral pneumonia Dictated by: Petr Phillips MD 12/04/2020 20:18 Petr Phillips MD in [facility] 12/04/2020 20:18
[2020-12-04 19:42] LABS: Chloride 104 mmol/L (98-107); Potassium 5.5 mmoL/L (3.5-5.1); Sodium 138 mmol/L (136-145); Troponin I 0.02 ng/ml (0.00-0.034)
[2020-12-04 19:45] LABS: Blood Urea Nitrogen 64 mg/dl (9-20); Creatinine Clearance Estimated 33 mL/min (50-200); Estimated Glomerular Filt Rate 29 ml/min (>60); GFR (African American) 35 ML/MIN (>60)
[2020-12-04 19:46] LABS: Anion Gap 21.5 mEq/L (5-15); Calcium 9.7 mg/dl (8.4-10.2); Carbon Dioxide 18 mmol/L (22.0-30.0); Glucose 221 mg/dl (74-100)
[2020-12-04 19:47] LABS: MANUAL DIFFERENTIAL MANUAL DIFFERENTIAL (MANUAL DIFF)
[2020-12-04 19:53] LABS: Microscopic, Urine URINE MICROSCOPIC (MICROSCOPIC)
[2020-12-04 19:53] LABS: Adenovirus,PCR Not Detected (NotDetected); Bordetella Pertussis Not Detected (NotDetected); Chlamydophila Pneumoniae, PCR Not Detected (NotDetected); Coronavirus 19, PCR Not Detected (NotDetected); Coronavirus 229E Not Detected (NotDetected); Coronavirus NL63 Not Detected (NotDetected); Coronavirus OC43 Not Detected (NotDetected); Coronovirus HKU1,PCR Not Detected (NotDetected); Human Metapneumovirus Not Detected (NotDetected); Influenza A, PCR Not Detected (NotDetected); Influenza AH1, 2009 Not Detected (NotDetected); Influenza AH1, PCR Not Detected (NotDetected); Influenza AH3,PCR Not Detected (NotDetected); Influenza B, PCR Not Detected (NotDetected); Mycoplasma Pneumoniae, PCR Not Detected (NotDetected); Parainfluenza 1, PCR Not Detected (NotDetected); Parainfluenza 2, PCR Not Detected (NotDetected); Parainfluenza 3, PCR Not Detected (NotDetected); Parainfluenza 4, PCR Not Detected (NotDetected); Respiratory Syncytial Virus Not Detected (NotDetected); Rhinovirus/Enterovirus Not Detected (NotDetected)
[2020-12-04 19:55] LABS: Appearance,Urine TURBID (Clear); Blood, Urine 3+ (Negative); Color,Urine DK YELLOW (Yellow); Glucose,Urine (UA) Negative (Negative); Ketones,Urine Negative (Negative); Leukocyte Esterase,Urine 2+ (Negative); Nitrate,Urine Negative (Negative); Protein,Urine 2+ (Negative); Specific Gravity, Urine 1.025 (1.005-1.030)
[2020-12-04 19:58] LABS: Alanine Aminotransferase 30 U/L (12-78); Alkaline Phosphatase 197 U/L (38-126); Aspartate Amino Transferase 52 U/L (17-59); Bilirubin,Direct 1.1 mg/dl (0.0-0.4); Bilirubin,Indirect 0.1 mg/dL (0.0-0.9); Bilirubin,Total 1.2 mg/dl (0.2-1.3); Bilirubin,Unconjugated 0.1 mg/dL (0.0-1.1); Total Protein,Serum 7.2 g/dl (6.3-8.2)
[2020-12-04 20:03] LABS: C-Reactive Protein 212.1 mg/L (0-4)
--- NOTE | 2020-12-04 20:15 | HMH.EDSOB ---
ED Disposition Clinical Impression: Severe sepsis with acute organ dysfunction, Septic shock, HCAP (healthcare-associated pneumonia), AICD (automatic cardioverter/defibrillator) present, Ischemic cardiomyopathy, COLEEN (acute kidney injury), Acute exacerbation of chronic obstructive airways disease, Hyperkalemia, Seizure disorder Hemiplegia Qualifiers: Hemiplegia type: unspecified type Hemiplegia etiology: late effect of cerebrovascular disease Cerebrovascular disease type: unspecified Hemiplegia laterality: right dominant side Qualified Code(s): I69.951 - Hemiplegia and hemiparesis following unspecified cerebrovascular disease affecting right dominant side Respiratory failure with hypoxia Qualifiers: Chronicity: acute on chronic Qualified Code(s): J96.21 - Acute and chronic respiratory failure with hypoxia Disposition: Admitted As Inpatient Condition on Discharge: Serious Referrals: PCP,No [Primary Care Provider] - - Critical Care Critical Care Time: Yes Attestation: On 12/04/20, the high probability of a clinically significant, sudden or life threatening deterioration of the following system(s) required my full and direct attention, intervention and personal management. The time I documented below is in addition to time spent performing reported procedures but includes the following listed in this critical care notation. Total Critical Care Time: 60 Vital system(s) involved:: Circulatory Failure, Respiratory Failure My critical care processes included: Assessment & monitoring of V/S, Initial and Re-exams, Data Review/Interpretation, Medication Orders and management Medical Decision Making - Medical Records Medical records reviewed: Yes: I reviewed the patient's medical records. - Andrew Inquiry Pt receiving controlled substance: No Vital Signs: 12/04/20 18:59 12/04/20 19:20 12/04/20 20:00 Temperature 97.6 F Temperature Source Rectal Pulse Rate [Apical] 105 H 85 79 Pulse Rate [Right Brachial] Respiratory Rate 35 H 32 H 34 H Blood Pressure [Right Arm] 89/64 L 106/66 L 104/62 L Blood Pressure Mean [Right Arm] 72 79 76 Blood Pressure Source [Right Arm] Automatic Cuff Automatic Cuff Automatic Cuff Blood Pressure Position [Right Arm] Supine Supine Supine 02 Sat by Pulse Oximetry 85 L 88 L 87 L Oxygen Delivery Method Non-Rebreather Non-Rebreather Non-Rebreather Oxygen Flow Rate (LPM) 15 12/04/20 20:30 12/04/20 21:00 12/04/20 21:30 Temperature Temperature Source Pulse Rate [Apical] 81 Pulse Rate [Right Brachial] 78 72 Respiratory Rate 32 H 28 H 31 H Blood Pressure [Right Arm] 102/62 L 97/50 L 94/61 L Blood Pressure Mean [Right Arm] 75 65 72 Blood Pressure Source [Right Arm] Automatic Cuff Automatic Cuff Automatic Cuff Blood Pressure Position [Right Arm] Supine Supine Supine 02 Sat by Pulse Oximetry 88 L 91 L 90 L Oxygen Delivery Method Non-Rebreather Non-Rebreather Non-Rebreather Oxygen Flow Rate (LPM) 12/04/20 22:00 Temperature Temperature Source Pulse Rate [Apical] Pulse Rate [Right Brachial] 68 Respiratory Rate 26 H Blood Pressure [Right Arm] 93/61 L Blood Pressure Mean [Right Arm] 71 Blood Pressure Source [Right Arm] Automatic Cuff Blood Pressure Position [Right Arm] Supine 02 Sat by Pulse Oximetry 93 L Oxygen Delivery Method Non-Rebreather Oxygen Flow Rate (LPM) - Lab Data Lab results reviewed: Yes: I reviewed the patient's lab results. Lab Results 12/04/20 18:30: WBC 16.3 H D, RBC 4.59 L, Hgb 12.6 L, Hct 41.9 L, MCV 91.3, MCH 27.4, MCHC 30.0 L, RDW 14.8, Plt Count 470 H, MPV 8.8, Neut % (Auto) 68.6, Lymph % (Auto) 25.0, [place] % (Auto) 4.5, Eos % (Auto) 1.6, Baso % (Auto) 0.4, Neut # (Auto) 11.2 H, Lymph # (Auto) 4.1, [place] # (Auto) 0.7, Eos # (Auto) 0.3, Baso # (Auto) 0.1, Total Counted 100, Neutrophils % (Manual) 64, Lymphocytes % (Manual) 28, Monocytes % (Manual) 6, Eosinophils % (Manual) 2, Nucleated RBCs 1, Platelet Estimate Slight increase, RBC Morphology Normal, Hypo
[2020-12-04 20:16] LABS: Eosinophils % 2 % (0-3); Lymphocytes % 28 % (10-50); Monocytes % 6 % (2-9); Neutrophils % 64 % (42-76); Nucleated Red Blood Cells 1; Platelet Estimate Slight Increase; RBC Morphology Normal; Total Cells Counted 100
[2020-12-04 20:17] LABS: Hypochromasia 2+; Procalcitonin 0.422 ng/mL (0.0-2.0)
[2020-12-04 20:23] LABS: Bacteria,Urine 2+ /lpf; Bilirubin,Urine Negative (Negative); Mucus,Urine 1+ /lpf
--- NOTE | 2020-12-04 20:38 | PC.NURSE ---
spoke with with when patient arrived and EKG was sent over STEMI phone. Old EKG was pulled from system and also sent to DR. Palomino. He advised he did not think it was a STEMI and pt to be worked up.
[2020-12-04 21:07] LABS: Erythrocyte Sedimentation Rate 40 mm/hr (0-20)
[2020-12-04 22:29] LABS: Troponin I 0.04 ng/ml (0.00-0.034)
[2020-12-04 23:08] LABS: ABG Base Excess -7.4 mmol/L (-2.4-2.3); ABG HCO3 18.7 mmhg (22.0-26.0); ABG Oxygen Saturation 90 % (90-100); ABG PCO2 36.7 mmhg (35.0-45.0); ABG PH 7.32 mmol/L (7.35-7.45); ABG TCO2 19.8 mmhg (23-27); Oxygen 100 %
[2020-12-04 23:10] LABS: Reflex Lactic Add Lactic Reflex
--- NOTE | 2020-12-04 23:39 | PC.NURSE ---
Cornelius speaking with Bernadette at this time regarding abx
[2020-12-04 23:46] LABS: Lactic Acid Follow Up (RFLX 1) 2.2 mmol/L (0.7-2.1)
[2020-12-04 23:58] LABS: NT Pro Brain Natriuretic Pep. 2230 pg/mL (0-450)
[2020-12-05] VITALS (11 sets, daily range): BP systolic 93–140; BP diastolic 48–73; PULSE 58–89; RESP 18–28; TEMP 36.5–36.7; O2SAT 90–97; BMI 26.3
[2020-12-05 00:05] LABS: T4 (Thyroxine) 4.9 ug/dl (5.53-11.0)
[2020-12-05 00:19] LABS: Thyroid Stimulating Hormone 1.38 uIU/mL (0.465-4.68)
[2020-12-05 01:04] LABS: Reflex Lactic (2 hrs) Add Lactic Reflex
[2020-12-05 01:15] LABS: Lactic Acid Follow up (RFLX 2) 1.8 mmol/L (0.7-2.1)
--- NOTE | 2020-12-05 01:26 | PC.NURSE ---
PT ARRIVED TO THE FLOOR VIA STRETCHER FROM ED WITH STAFF AT [phone]
[2020-12-05 01:27] LABS: Troponin I 0.06 ng/ml (0.00-0.034)
--- NOTE | 2020-12-05 01:45 | PC.NURSE ---
late entry: Stephanie Martínez RN given bedside report in ER by Miriam Colin RN @ 0125. Pt was transferred to the 2nd floor with RN & RT.
[2020-12-05 06:31] LABS: Basophils % 0.2 % (0.1-2.0); Eosinophils # 0.1 K/mm3 (0.0-0.4); Eosinophils % 0.8 % (0.1-12.0); Lymphocytes % 7.5 % (10-50); Mean Corpuscular HGB Conc 31.1 g/dL (31.8-35.4); Mean Corpuscular Hemoglobin 27.7 pg (27.0-31.2); Mean Corpuscular Volume 89.3 fl (80-94); Mean Platelet Volume 8.4 fl (7.4-10.4); Monocytes # 0.6 K/mm3 (0.1-1.0); Monocytes % 4.6 % (1.7-9.3); Neutrophils # 11.1 K/mm3 (1.8-7.8); Neutrophils % 86.9 % (37.0-80.0); Platelet Count 356 K/mm3 (142-424); Red Blood Count 4.03 M/mm3 (4.60-6.20); Red Cell Distribution Width 14.9 % (11.5-17.5); White Blood Count 12.8 K/mm3 (4.8-10.8)
[2020-12-05 06:47] LABS: Hemoglobin 11.2 g/dL (14.1-18.0); MANUAL DIFFERENTIAL MANUAL DIFFERENTIAL (MANUAL DIFF)
[2020-12-05 07:04] LABS: Anion Gap 10.9 mEq/L (5-15); Blood Urea Nitrogen 56 mg/dl (9-20); Calcium 8.8 mg/dl (8.4-10.2); Carbon Dioxide 21 mmol/L (22.0-30.0); Chloride 109 mmol/L (98-107); Creatinine Clearance Estimated 37 mL/min (50-200); Estimated Glomerular Filt Rate 37 ml/min (>60); GFR (African American) 44 ML/MIN (>60); Glucose 111 mg/dl (74-100); Magnesium 2.7 mg/dl (1.6-2.3); Potassium 3.9 mmoL/L (3.5-5.1); Sodium 137 mmol/L (136-145)
--- NOTE | 2020-12-05 07:31 | P.CONPHA_ITS ---
[facility] Pharmacy VTE Monitoring - Patient Demographics Admission date: 12/05/20 Report Date: 12/05/20 Time: 07:31 Allergies/Adverse Reactions: Patient Allergies No Known Allergies Allergy (Verified 01/17/20 10:25) Height: 1.73 m Weight: 78.5 kg Patient Problems: Current Active Problems Severe sepsis with acute organ dysfunction (Acute) Septic shock (Acute) HCAP (healthcare-associated pneumonia) (Acute) COLEEN (acute kidney injury) (Acute) Acute exacerbation of chronic obstructive airways disease (Acute) Hyperkalemia (Acute) Seizure disorder (Acute) Hemiplegia (Acute) Respiratory failure with hypoxia (Acute) AICD (automatic cardioverter/defibrillator) present (Chronic) Ischemic cardiomyopathy (Chronic) - VTE Risk Labs: VTE Related Lab Results Hgb 11.2 g/dL (14.1-18.0) L D 12/05/20 06:00 Hct 36.0 % (42.0-52.0) L 12/05/20 06:00 Plt Count 356 K/mm3 (142-424) 12/05/20 06:00 BUN 56 mg/dl (9-20) H 12/05/20 06:00 Creatinine 1.80 mg/dl (0.66-1.25) H 12/05/20 06:00 Estimated Creat Clear 37 mL/min (50-200) 12/05/20 06:00 Was VTE Risk Assessment Performed: Yes VTE Score: 5 VTE Risk Level: Low Risk Clinical Trial Participant: No - Prophylaxis VTE Prophylaxis Ordered?: Yes Types of VTE Prophylaxis: TEDS Knee High
--- NOTE | 2020-12-05 07:44 | HMH.PHAINT ---
HOME MEDICATION LIST CORRECTED USING MAR FROM INTERMEDIATE
--- NOTE | 2020-12-05 08:00 | CA_ITS ---
APPROVED REPORT EXAM: Comprehensive 2D, Doppler, and color-flow Echocardiogram [employer]: Sierra Nails CRT Ht: 5 ft 9 in Wt: 190lbs BSA: 2.02 BP: 93/61 mmHg Indications: Congestive Heart Failure, COPD, Shortness of Breath, CVA/TIA, Hyperlipidemia, Hypertension/HDD, AICD, CABG, CM, old FL 2D Dimensions LVOT 1.99 cm (M/F) 1.5-2.5 M-Mode Dimensions RVDd 3.37 cm (0.9-2.6) LA Diam 3.37 cm (1.9-4.0) LVDd 6.16 cm (3.5-5.7) Ao Diam 4.58 cm (2.0-3.7) LVDs 5.34 cm (3.5-5.7) IVSd 1.15 cm (0.6-1.1) PWd 0.97 cm (0.6-1.1) EF (Teich) 27.90% FS 13.30% EDV (Teich) 191.10 mL ESV (Teich) 137.70 mL LV Diastology E Decel Time 150.00 (160-240 msec) E/A Ratio 0.58 MED E' 3.90 (< 7 cm/sec) MED A' 9.10 cm/s E'/MED E' Ratio 11.08 (>14) LAT E' 7.50 (<10 cm/sec) LAT A' 8.50 cm/s E/LAT E' Ratio 5.76 (>14) Aortic Valve AO Peak GR. 6.10 mmHg Mitral Valve MV E Max Ramakrishna. 43.00 (40-130 cm/s) MV A Velocity 74.00 (40-130 cm/s) E/A Ratio 0.58 MV Decel. Time 150.00 (160-240 ms) MV PHT 44.00 ms Tricuspid Valve TR P. Velocity 310.00 cm/s RAP Estimate 10.00 mmHg RVSP 48.50 mmHg Left Ventricle Technically difficult study because of the patient factors and poor acoustic windows, repeat study with Definity contrast is recommended. Left atrium is mildly enlarged, left ventricle is mildly dilated, mild concentric left ventricular hypertrophy, probably visually estimated ejection fraction is 40%, endocardial surfaces are very poorly visualized, inferior wall appears to be markedly hypokinetic. Diastolic parameters are inconclusive. Right Ventricle Right atrium and right ventricle are mildly enlarged with normal contractility, there is an AICD lead seen in right ventricle. Aortic Valve Aortic valve is thickened and calcified, there is no aortic stenosis or aortic insufficiency. Mitral Valve Mitral valve leaflets are minimally thickened, there is mild mitral regurgitation. Tricuspid Valve Tricuspid valve is grossly normal, there is mild tricuspid regurgitation, tricuspid regurgitation jet velocity is inadequate for calculation of the right ventricular systolic pressure. Pulmonic Valve Pulmonic valve is poorly visualized. Great Vessels Aortic root is normal size. Pericardium No significant pericardial effusion noted. Conclusion 1. Mildly enlarged left atrium, mildly dilated left ventricle, visually estimated ejection fraction 40%, endocardial surfaces are very poorly visualized, there appears to be segmental wall motion abnormality involving the inferior wall, a repeat study with Definity contrast is recommended, diastolic parameters are inconclusive. 2. Thickened and calcified aortic valve without aortic stenosis or aortic insufficiency. 3. Mild mitral and tricuspid regurgitation. 4. No significant pericardial effusion noted. Electronically signed by : Jc Linton, 12/05/2020 18:34:53
--- NOTE | 2020-12-05 08:00 | XR_ITS ---
PROCEDURE: XR CHEST PORTABLE CLINICAL HISTORY: sob Covid19 pneumonia COMPARISON: CR CXR1VP XR chest portable from 11/12/2018 CR CXR2V XR chest 2V from 12/28/2018 CR XR CHEST PORTABLE from 12/04/2020 FINDINGS: Prior CABG with multiple cardiac pacemaker wires present. Bilateral pneumonia once again noted more extensive on the left compared to the right. Left-sided pneumonia has somewhat worsened compared to the previous exam No acute bony abnormalities. IMPRESSION: Continued bilateral pneumonia which is slightly worse on the left Dictated by: Petr Phillips MD 12/05/2020 08:34 Petr Phillips MD in [facility] 12/05/2020 08:34
--- NOTE | 2020-12-05 08:23 | HMH.HP ---
*Admission Date: 12/05/20 *Chief complaint: Severe sepsis with bilateral pneumonia, probable aspiration *History of present illness: 80-year-old white male, [facility] who suffers from normal pressure hydrocephalus, congenital intellectual disability who is power of pan greaser/healthcare surrogate, his sister, in September of this year. State guardianship has been requested but is not yet pending. Patient had a respiratory arrest after supper last night at the [facility], was found to be pulseless per [facility] report, chest compressions were administered and patient's pulse recovered spontaneously and he was responding and transferred to the emergency department here. Found to be hypotensive, infiltrates on chest x-ray, met criteria for severe sepsis and was admitted to hospital for broad-spectrum IV antibiotics and further supportive care. This morning he is alert, recognizes me and feels better. [facility] History I have reviewed the patient's past medical history: Yes Medical History: Reports:: Atherosclerotic Heart Disease, Cardiomyopathy, Coronary Artery Disease, Hyperlipidemia, Hypertension, Internal Pacemaker, Lung Disease, Myocardial Infarction Denies:: Cancer, Diabetes Mellitus Type 1, Diabetes Mellitus Type 2, MRSA, Seizures *Have you ever received a pneumonia vaccine?: Yes *Have you received a flu vaccine this season?: Yes Other Medical History: Reports: Arthritis, Thyroid Disease, Other Comment:: History of normal pressure hydrocephalus with shunt placement, seizure disorder, congenital intellectual disability Other Surgeries: Yes: CABG, Cardiac Surgery, Colonoscopy, Pacemaker Amputation: No Fractures: Yes (shoulder) - *Social History Smoking Status: Former smoker Alcohol Intake: never Alcohol Intake Frequency:: other Substance Use Type: denies use *Occupational Status:: disabled Housing: [facility] Household Members: none *Travel in the last 8 weeks: None Family Hx:: Unable to obtain Review of Systems - Review of Systems Review of systems:: pertinent systems reviewed and negative unless documented below - *Neurologic Denies dizziness, Denies localized weakness, Denies seizure-like activity Meds Home Medications Medication Instructions Recorded Confirmed Type Aspirin [Aspir 81] 81 mg PO DAILY 02/11/18 12/05/20 History Finasteride [Proscar 5mg Tablet] 5 mg PO DAILY 02/11/18 12/05/20 History Pantoprazole Sodium [Protonix 40mg 40 mg PO DAILY 02/11/18 12/05/20 History tablet] Atorvastatin Calcium [Atorvastatin 20 mg PO HS 11/12/18 12/05/20 History 20mg Tab] acetaminophen 325 mg capsule 325 mg PO Q8HP PRN 04/25/19 12/05/20 History citalopram 20 mg tablet 20 mg PO HS 04/25/19 12/05/20 History gabapentin 100 mg capsule 100 mg PO BID 07/25/19 12/05/20 History trazodone 50 mg tablet 50 mg PO HS tab 07/25/19 12/05/20 History tamsulosin 0.4 mg capsule 0.4 mg PO HS 11/04/19 12/05/20 History donepezil 10 mg tablet 10 mg PO HS 11/17/19 12/05/20 History levetiracetam 500 mg tablet 500 mg PO HS 11/17/19 12/05/20 History polyethylene glycol 3350 17 gram 17 g PO DAILY 11/17/19 12/05/20 History oral powder packet spironolactone 25 mg tablet 25 mg PO DAILY 11/17/19 12/05/20 History Docusate Sodium [Docusate Sodium 100 mg PO DAILY 12/05/20 12/05/20 History 100mg Cap] Memantine HCl [Memantine 10mg 10 mg PO BID 12/05/20 12/05/20 History Tablet] Mirtazapine 7.5 mg PO HS 12/05/20 12/05/20 History Oxybutynin Chloride 5 mg PO BID 12/05/20 12/05/20 History Ticagrelor [Brilinta 60mg Tab] 60 mg PO BID 12/05/20 12/05/20 History Allergies Allergy/AdvReac Type Severity Reaction Status Date / Time No Known Allergies Allergy Verified 01/17/20 10:25 Exam Vital signs and Labs for Last 24 Hours: Temp Pulse Resp BP Pulse Ox 98.0 F 80 18 140/72 94 L 12/05/20 04:00 12/05/20 04:00 12/05/20 04:00 12/05/20 04:00 12/05/20 04:00 Laboratory Results - last 2
--- NOTE | 2020-12-05 08:32 | SW/DCPLANNER ---
Addendum entered by Malena Moore 12/05/20 10:36: DR WILSON SPOKE WITH BRIJESH AND SHE HAS AGREED TO MAKE DECISIONS UNTIL STATE APPROVES GUARDIANSHIP... NIGRIFFIN STATED SHE WILL SPEAK WITH HER SISTER BUT FEELS ITS IN HIS BEST INTEREST TO MAKE HIM A DNR.... Original Note: PATIENT ADMITTED TO [facility] FROM [facility] IN [place]... HE ADMITTED WITH A DIAGNOSIS SEVERE SEPSIS AND IS ON A MEDICAID BEDHOLD... APS IS INVOLVED AND FAMILY WISHES NOT TO MAKE DECISIONS... WILL KEEP THE FACILITY IN TOUCH WITH HIS CONDITION..
[2020-12-05 09:30] LABS: Lymphocytes % 21 % (10-50); Monocytes % 3 % (2-9); Neutrophils % 73 % (42-76); RBC Morphology Normal; Total Cells Counted 100
[2020-12-05 09:31] LABS: Platelet Estimate Normal
--- NOTE | 2020-12-05 21:00 | PC.NURSE ---
Pt at approx 1730. clerk of scales called and stated pts hr was 17. This nurse and SRNA went into pts room and he was . Pt's code status was DNR. Shortly, prior to that this RN and another RN went in and cheked on pt when appiah clerked called to check on pt. Pt was lying in bed with NAD, breathing. VS at 1600 were stable and pt had been verbal this shift and alert to self. This nurse did make Janee Fajardo aware of passing, as well as ask if family wanted to come and see pt, they opted not to do so and stated pt was to go to [facility] in [place]. Also, called and spoke with Yelitza at [facility].
--- NOTE | 2021-01-10 09:56 | P.DN_ITS ---
Discharge Sum: Prov - Provider Primary care physician: No PCP Visit Care Team Role Provider Type No PCP Primary Care Provider Non-Staff Cortez Palomino MD Other Providers Staff Physician ZAIDA Petersen Other Providers Physician Veneer Jointer Operator Geneva Oneil APRN Other Providers Nurse Practitioner Samantha Dale APRN Other Providers Nurse Practitioner Neptali Acuna MD Emergency Provider ER Physician Samuel Aranda MD Attending Provider Staff Physician Fantasma Shields MD Admit Provider Staff Physician Admitting clinician: Samuel Aranda Attending physician on admission: Samuel Aranda Consults: 12/05/20 08:00 Consult to Cardiology [CONS] Routine Consulting Provider: Cardiology Reason For Consult: possibe cardiac event/pacemaker Discharge Sum: Diag - PCOD Cause of : Acute respiratory failure Discharge Sum: Summary - Date and Time Date of admission: 12/05/20 01:25 Date of : 12/05/20 Time of : 17:30 - Hospital Course prior to Hospital Course Information: [facility] with [facility]. Broad-spectrum IV antibiotics, fluid boluses and appropriate sepsis protocols were initiated patient initially responded well. However, he was found pulseless, and unresponsive on the afternoon of December 05 by the nursing staff. Given his previously declared DNR status no aggressive resuscitative measures undertaken and he was pronounced at 1730 on that date. Cause of severe sepsis. - Summary Details: Patient was admitted from prison with severe sepsis. Broad-spectrum IV antibiotics, fluid boluses and appropriate sepsis protocols were initiated patient initially responded well. However, he was found pulseless, and unresponsive on the afternoon of December 05 by the nursing staff. Given his previously declared DNR status no aggressive resuscitative measures undertaken and he was pronounced at 1730 on that date. Cause of severe sepsis. - Additional Data Confirmation of as documented by pronouncing clinician: no pulse Family: contacted Attending/PCP notified?: Yes Attending physician: Samuel Aranda MD Was code activated?: No Autopsy requested?: No examiner rating clerk notified?: No Organ bank notified?: Yes Advance directives: Yes Hospice patient?: No
[2021-01-29 14:25] LABS: ABG HCO3 18.7 mmhg (22.0-26.0); ABG PCO2 36.7 mmhg (35.0-45.0); ABG PH 7.32 mmol/L (7.35-7.45); ABG TCO2 19.8 mmhg (23-27)
[2021-01-29 14:26] LABS: ABG Base Excess -7.4 mmol/L (-2.4-2.3); ABG Oxygen Saturation 90 % (90-100); Allen's Test ACCEPTABLE
[2021-01-29 14:27] LABS: Source LEFT RADIAL
== END 2020-12-05 21:19 | disposition expired | DRG 193 ==
LOC: ER 23:44 → 2ND 12-05 01:58
PROVIDERS: Admitting Provider Emergency Medicine; Emergency Provider Emergency Medicine; Visit Provider Internal Medicine Adolescent Medicine
DX: J18.9 Pneumonia, unspecified organism (principal); R65.21 Severe sepsis with septic shock; J96.21 Acute and chronic respiratory failure with hypoxia; G91.2 (Idiopathic) normal pressure hydrocephalus; N17.9 Acute kidney failure, unspecified; J44.1 Chronic obstructive pulmonary disease with (acute) exacerbation; I95.9 Hypotension, unspecified; G40.909 Epilepsy, unspecified, not intractable, without status epilepticus; Z95.810 Presence of automatic (implantable) cardiac defibrillator; I25.2 Old myocardial infarction; Z79.899 Other long term (current) drug therapy; Z79.82 Long term (current) use of aspirin; Z79.01 Long term (current) use of anticoagulants; I11.0 Hypertensive heart disease with heart failure; I50.9 Heart failure, unspecified; I25.5 Ischemic cardiomyopathy
CPT/HCPCS: 71045; 80048; 80076; 81001; 82803; 83605; 83735; 83880; 84145; 84436; 84443; 84484; 85007; 85025; 85651; 86140; 87040; 87077; 87086; 87088; 87186; 87581; 87633; 87798; 93005; 93306; 94760; 96365; 96367; 96372; 96375; 99282; J0692; J1956